=== PATIENT | male | born 1995 | race Caucasian/White ===

== ENCOUNTER 2017-02-10 11:06 | Emergency (ER) | payer OTHER ==
--- NOTE | 2017-02-10 11:46 | ED ---
General Adult HPI - General Chief complaint: Psychiatric Symptoms Stated complaint: mental health Time Seen by Provider: 02/10/17 11:33 Source: patient, RN notes reviewed Mode of arrival: ambulatory Limitations: no limitations - History of Present Illness Initial comments: Patient is a 21-year-old male who presents emergency room today if any that he did take Bello 2 this morning. He states that he is from the "[facility] area". States that he one to have a "tripped". Does admit that he took LSD this morning approximately 8 AM. He states he has taken this in the past. Patient does admit that he is coming off of the "tripped" at this time. He states that he is not suicidal. He states he just wants to prove that to his parents. States he would like to talk to his parents to communicate this with them. Patient denies any physical complaints at this time. Mother admits to nursing staff over the phone that there is family history of schizophrenia but he has not been diagnosed. Patient denies any recent fever, chills, shortness of breath, chest pain, back pain, abdominal pain, nausea or vomiting, numbness or tingling, dysuria or hematuria, constipation or diarrhea, headaches or visual changes, or any other complaints. - Related Data Home Medications Medication Instructions Recorded Confirmed No Known Home Medications [No 02/10/17 02/10/17 Known Home Medications] Allergies Allergy/AdvReac Type Severity Reaction Status Date / Time No Known Allergies Allergy Verified 02/10/17 12:20 Review of Systems ROS Statement: Those systems with pertinent positive or pertinent negative responses have been documented in the HPI. ROS Other: All systems not noted in ROS Statement are negative. Past Medical History Past Medical History: No Reported History History of Any Multi-Drug Resistant Organisms: None Reported Additional Past Surgical History / Comment(s): ear surgery Past Psychological History: No Psychological Hx Reported Smoking Status: Current some day smoker Past Alcohol Use History: Rare Past Drug Use History: Marijuana, Prescription Drug Abuse General Exam - General Exam Comments Initial Comments: General: The patient is awake and alert, in no distress, and does not appear acutely ill. Eye: Pupils are equal, round and reactive to light, extra-ocular movements are intact. No nystagmus. There is normal conjunctiva bilaterally. No signs of icterus. Ears, nose, mouth and throat: There are moist mucous membranes and no oral lesions. Neck: The neck is supple, there is no tenderness or JVD. Cardiovascular: There is a regular rate and rhythm. No murmur, rub or gallop is appreciated. Respiratory: Lungs are clear to auscultation, respirations are non-labored, breath sounds are equal. No wheezes, stridor, rales, or rhonchi. Musculoskeletal: Normal ROM, no tenderness. Strength 5/5. Sensation intact. Pulses equal bilaterally 2+. Neurological: A&O x 3. CN II-XII intact, There are no obvious motor or sensory deficits. Coordination appears grossly intact. Speech is normal. Skin: Skin is warm and dry and no rashes or lesions are noted. Psychiatric: Cooperative. Flight of ideas. Limitations: no limitations Course Vital Signs 02/10/17 11:08 Temperature 98.4 F Pulse Rate 125 H Respiratory 18 Rate Blood Pressure 162/92 O2 Sat by Pulse 98 Oximetry Medical Decision Making - Medical Decision Making She has been observed here in the emergency room for greater than 6 hours. He states he did take LSD 8 AM this morning which is approximately 9 hours ago. Patient states that he is feeling much better and more like himself here. He has calmed down. Agent is lucid and acting appropriate at this time. Patient alert and oriented x 3 and clinically sober to go home. Case was discussed and seen by attending physician . - Lab Data Lab Results 02/10/17 Range/Units 11:50 Urine Opiates Screen Not Detected (NotDetected) Ur Oxycodone Screen Not Detected (NotDetected) Urine Methadone Screen Not Detected (NotDetected) Ur Propoxyphene Screen Not Detected (NotDetected) Ur Barbiturates Screen Not Detected (NotDetected) U Tricyclic Antidepress Not Detected (NotDetected) Ur Phencyclidine Scrn Not Detected (NotDetected) Ur Amphetamines Screen Not Detected (NotDetected) U Methamphetamines Scrn Not Detected (NotDetected) U Benzodiazepines Scrn Not Detected (NotDetected) Urine Cocaine Screen Not Detected (NotDetected) U Marijuana (THC) Screen Not Detected (NotDetected) Disposition Clinical Impression: Drug abuse Disposition: HOME SELF-CARE Condition: Good Instructions: Polysubstance Abuse (ED) Referrals: Nonstaff,Physician [Primary Care Provider] - 1-2 days Time of Disposition: 17:58
[2017-02-10 17:59] VITALS: BP 135/78; PULSE 76; RESP 16; TEMP 98.1
== END 2017-02-10 18:05 | disposition home or self-care (01) ==
LOC: EC 11:06
DX: F16.10 Hallucinogen abuse, uncomplicated (principal); F17.200 Nicotine dependence, unspecified, uncomplicated
CPT/HCPCS: 80306; 82075; 99285